=== PATIENT | male | born 1980 | race Caucasian/White ===

== ENCOUNTER 2023-05-06 15:12 | Outpatient (CLI) | payer OTHER, SELFPAY ==
--- NOTE | ~2023-05-06 | CT_ITS ---
CT of the Abdomen and Pelvis: Indication: Abdominal pain, hernia Technique: 2.5 mm axial scans were obtained through the abdomen and pelvis prior to and following in travenous administration of 100 cc of Omnipaque 350. Dose reduction technique was used on this scan b y utilizing automated exposure control and iterative reconstruction technique. The dose-length produc t (DLP) was 919.32 mGy-cm. Findings: Scans through the lung bases are unremarkable. The liver, spleen, pancreas, gallbladder, adrenal glands are within normal limits. 6 mm nonobstructin g right renal stone present. Small bilateral renal cysts are present. No evidence of aortic aneurysm. No lymphadenopathy. No bowel obstruction or bowel wall thickening. There is no evidence to suggest acute appendicitis. Images through the pelvis were performed. Urinary bladder unremarkable. Prostate gland and seminal ve sicles are unremarkable. Impression: 6 mm nonobstructing right renal stone. No other significant findings. Reviewed, dictated and finalized at [facility]. Impression: 6 mm nonobstructing right renal stone. No other significant findings.
== END 2023-05-06 15:13 ==
PROVIDERS: PCP Physician Assistant Medical; Visit Provider Physician Assistant Medical
DX: R10.9 Unspecified abdominal pain (principal); K43.2 Incisional hernia without obstruction or gangrene; N20.0 Calculus of kidney
CPT/HCPCS: 74178; Q9967